=== PATIENT | male | born 1995 | race Two or more races ===

== ENCOUNTER 2017-12-24 16:17 | Emergency (ER) | payer OTHER ==
[~2017-12-24] VITALS: Ht 180.3 cm; Wt 123.4 kg
[2017-12-24 18:32] VITALS: BP 153/81
== END 2017-12-24 19:54 | disposition home or self-care (01) ==
LOC: ER 16:17
DX: S40.811A Abrasion of right upper arm, initial encounter (principal); M62.838 Other muscle spasm; V43.52XA Car driver injured in collision with other type car in traffic accident, initial encounter; Y93.89 Activity, other specified; Y92.89 Other specified places as the place of occurrence of the external cause; Y99.8 Other external cause status
CPT/HCPCS: 72040; 73030

== ENCOUNTER 2018-07-02 07:10 | Emergency (ER) | payer OTHER ==
[~2018-07-02] VITALS: Ht 180.3 cm; Wt 122.5 kg
[2018-07-02 07:53] LABS: Basophils # (auto) 0 uL; Basophils % (auto) 0.6 % (0.0-2.0); Eosinophils # (auto) 0.2 uL; Eosinophils % (auto) 2.6 % (0.0-7.0); Hematocrit 46.9 % (41.0-53.0); Lymphocytes # (auto) 2.3 uL; Mean Corpuscular Hemoglobin 30.6 pg (28.0-32.0); Mean Corpuscular Hgb Conc. 34.1 g/dL (32.0-36.0); Mean Corpuscular Volume 89.9 fL (80.0-100.0); Monocytes # (auto) 0.3 uL; Monocytes % (auto) 4.6 % (0.0-12.0); Neutrophils # (auto) 3.9 uL; Neutrophils % (auto) 58.2 % (37.0-80.0); Nucleated Red Blood Cells % 0.1 %; Platelet Count (auto) 243 10^3/uL (140-450); Red Blood Cells 5.22 10^6/uL (4.5-5.90); Red Cell Distribution Width 12.8 % (11.8-14.3); White Blood Cell 6.7 10^3/uL (4.4-10.8)
[2018-07-02 08:11] LABS: Alanine Aminotransferase 69 U/L (16-61); Anion Gap 8 (5-15); Aspartate Aminotransferase 36 U/L (15-37); BUN/Creatinine Ratio 18.3; Blood Urea Nitrogen 17 mg/dL (7-18); Calcium 8.3 mg/dL (8.5-10.1); Carbon Dioxide 26 mmol/L (21-32); Chloride 106 mmol/L (98-107); GFR African American 131 mL/min; GFR Non-African American 108 mL/min; Glucose 93 mg/dL (74-106); Potassium 4.1 mmol/L (3.5-5.1); Sodium 140 mmol/L (136-145)
[2018-07-02 08:16] LABS: Alkaline Phosphatase 102 U/L (45-117); Bilirubin, Total 0.5 mg/dL (0.2-1.0); Total Protein 7.4 g/dL (6.4-8.2)
[2018-07-02 08:44] VITALS: BP 124/87
== END 2018-07-02 12:20 | disposition home or self-care (01) ==
LOC: ER 07:10
DX: R07.89 Other chest pain (principal)
CPT/HCPCS: 36415; 71046; 80053; 84484; 85025; 93005

== ENCOUNTER 2018-12-16 12:20 | Inpatient (IN) | payer OTHER ==
[~2018-12-16] VITALS: Ht 180.3 cm; Wt 121.7 kg
[2018-12-16] MEDS ORDERED: SODIUM CHLORIDE 0.9% 1,000 ML IVB ONE (12:43)
[2018-12-16] MEDS ORDERED: ONDANSETRON HCL 4 MG/2 ML VIAL IV ONE ×2 (12:45→17:45)
[2018-12-16] MEDS ORDERED: MORPHINE SULFATE 4 MG/ML SYR/VIAL IV ONE (12:45)
[2018-12-16 13:30] LABS: Basophils # (auto) 0.1 uL; Basophils % (auto) 0.4 % (0.0-2.0); Eosinophils # (auto) 0 uL; Eosinophils % (auto) 0.1 % (0.0-7.0); Hematocrit 48.2 % (41.0-53.0); Hemoglobin 16.5 g/dL (13.5-17.5); Lymphocytes # (auto) 0.5 uL; Mean Corpuscular Hemoglobin 30.5 pg (28.0-32.0); Mean Corpuscular Hgb Conc. 34.3 g/dL (32.0-36.0); Monocytes # (auto) 0.7 uL; Monocytes % (auto) 4.9 % (0.0-12.0); Neutrophils # (auto) 12.3 uL; Neutrophils % (auto) 90.6 % (37.0-80.0); Platelet Count (auto) 215 10^3/uL (140-450); Red Blood Cells 5.42 10^6/uL (4.5-5.90); White Blood Cell 13.6 10^3/uL (4.4-10.8)
[2018-12-16 13:52] LABS: Calcium 8.5 mg/dL (8.5-10.1); Magnesium 2.2 mg/dL (1.6-2.6); Potassium 3.7 mmol/L (3.5-5.1)
[2018-12-16 13:56] LABS: BUN/Creatinine Ratio 9.8; Bilirubin, Total 1.9 mg/dL (0.2-1.0); Total Protein 8.1 g/dL (6.4-8.2)
[2018-12-16 13:57] LABS: Urine Bacteria NONE SEEN /hpf (None Seen); Urine Blood Negative /uL (Negative); Urine Specific Gravity 1.014 (1.001-1.035); Urine WBC 1 /hpf (0 - 3)
[2018-12-16] MEDS ORDERED: PIPERACILLIN-TAZOB 3.375GM 100 ML IV ONE (14:00)
[2018-12-16] MEDS ORDERED: ONDANSETRON HCL 4 MG/2 ML VIAL IV PRN (14:15)
[2018-12-16] MEDS: SOD CHL 0.9%/ KCL 20MEQ 1,000 ML IV SCH ×2 (14:19→22:34)
[2018-12-16 15:45] LABS: INR 1.12 (0.9-1.15); Prothrombin Time 11.9 sec (9.27-12.13)
[2018-12-16] MEDS ORDERED: cefTRIAXone 1GM/50ML D5W 50 ML IV ONE (15:52)
[2018-12-16] MEDS ORDERED: BUPIVACAINE 0.25% INJ 50ML VIAL ONE (15:55)
[2018-12-16] MEDS ORDERED: LIDOCAINE 1% HCL (LOCAL ANESTH.) INJ 20ML MDV ONE (15:55)
[2018-12-16] MEDS ORDERED: fentaNYL CITRATE 100 MCG/2 ML VL ONE (15:59)
[2018-12-16] MEDS ORDERED: ROCURONIUM 10MG/ML 10ML VIAL IV ONE (15:59)
[2018-12-16] MEDS ORDERED: MIDAZOLAM HCL 1MG/1ML-2 ML VIAL ONE (15:59)
[2018-12-16] MEDS ORDERED: SUCCINYLCHOLINE CHLORIDE 20 MG/ML 10ML VIAL IV ONE (16:01)
[2018-12-16] MEDS ORDERED: GLYCOPYRROLATE 0.2 MG/ML 1ML VIAL IV ONE (16:01)
[2018-12-16] MEDS ORDERED: NEOSTIGMINE 1 MG/ML INJ (10mg/10ML VIAL) IV ONE (16:01)
[2018-12-16] MEDS ORDERED: MORPHINE SULFATE 4 MG/ML SYR/VIAL IV PRN (17:45)
[2018-12-16] MEDS ORDERED: hydrALAZINE HCL 20 MG/ML VL IV PRN (17:45)
[2018-12-16] MEDS ORDERED: ePHEDrine SULFATE 50 MG/ML AMP IV PRN (17:45)
[2018-12-16 19:10] VITALS: BP 119/60
--- NOTE | 2018-12-16 19:10 | NUR ---
[place] admit from OR CAROLYNE MARTIN admitted to Med/surg unit, Luiz RN gave SBAR on patient. Patient oriented to Marion alexander RN, unit, room, bed, and unit policies regarding patient care and visiting hours. Patient is on room air, weighed by bedscale and encouraged to call if he needs something. All questions and concerns addressed, patient verbalized understanding.
[2018-12-16] MEDS: MORPHINE SULF INJ 2 MG/ML SYRINGE 1ML IV PRN (20:08)
[2018-12-16] MEDS: metroNIDAZOLE 500MG/100ML 100 ML IV SCH ×2 (20:10→23:55)
[2018-12-16 22:00] VITALS: BP 119/60
--- NOTE | 2018-12-16 23:00 | NUR ---
Patient had temperature Patient had temperature of 102.4, rechecked temperature and it was 101.9. Cold measures applied. Will continue to monitor patient.
--- NOTE | 2018-12-16 23:30 | NUR ---
Hospitalist paged No medication available to give patient for fever, hospitalist paged for orders. Will await call.
--- NOTE | 2018-12-17 00:30 | NUR ---
Hospitalist returned call Orders received, read back and confirmed.
[2018-12-17] MEDS: ACETAMINOPHEN 500 MG TAB PO PRN ×3 (01:25→15:53)
[2018-12-17] MEDS: MORPHINE SULF INJ 2 MG/ML SYRINGE 1ML IV PRN ×5 (02:37→21:55)
[2018-12-17 05:00] VITALS: BP 137/75
[2018-12-17 06:05] LABS: Basophils # (auto) 0 uL; Basophils % (auto) 0.1 % (0.0-2.0); Eosinophils # (auto) 0 uL; Hemoglobin 14.7 g/dL (13.5-17.5); Lymphocytes # (auto) 0.8 uL; Lymphocytes % (auto) 6.2 % (10.0-50.0); Mean Corpuscular Hemoglobin 30.7 pg (28.0-32.0); Mean Corpuscular Hgb Conc. 34.2 g/dL (32.0-36.0); Mean Corpuscular Volume 89.8 fL (80.0-100.0); Monocytes # (auto) 1.1 uL; Monocytes % (auto) 8.7 % (0.0-12.0); Neutrophils # (auto) 10.5 uL; Platelet Count (auto) 160 10^3/uL (140-450); Red Blood Cells 4.79 10^6/uL (4.5-5.90); White Blood Cell 12.3 10^3/uL (4.4-10.8)
[2018-12-17 06:09] LABS: Calcium 7.5 mg/dL (8.5-10.1); Potassium 3.9 mmol/L (3.5-5.1)
[2018-12-17] MEDS: metroNIDAZOLE 500MG/100ML 100 ML IV SCH ×3 (06:22→17:40)
--- NOTE | 2018-12-17 06:52 | NUR ---
Patient's temperature decreasing Patient had a temperature over night. Tylenol and cold measures applied. Patient tolerated well, last temperature taken was 99.8. Will continue to monitor.
--- NOTE | 2018-12-17 08:50 | NUR ---
Opening Shift Note Assumed care of patient, awake and alert. No S/S of distress/SOB. Patient complains of 6/10 abd pain and asking for pain medications. Instructed on POC and to call for assist PRN, will continue to monitor for changes Q1hr and PRN. NOTE: Educated patient on importance of ambulation. Goals established with patient. Patients mom at bedside participating in patient care.
[2018-12-17 08:53] VITALS: BP 142/84
--- NOTE | 2018-12-17 12:00 | NUR ---
AMBULATION Patient ambulated lap around nursing station with RN standby assist. Patient tolerated well.
[2018-12-17 12:42] VITALS: BP 130/79
[2018-12-17] MEDS: SOD CHL 0.9%/ KCL 20MEQ 1,000 ML IV SCH ×2 (14:15→22:09)
--- NOTE | 2018-12-17 16:20 | NUR ---
DR GONZALEZ ROUNDING Verbal order to keep patient npo. Tray taken. Pt educated.
[2018-12-17 17:00] VITALS: BP 163/81
--- NOTE | 2018-12-17 19:05 | NUR ---
Opening Shift Note Assumed care of patient, awake and alert. No S/S of distress or SOB. Instructed on POC and to call for assistance PRN, will continue to monitor for changes Q1hr and PRN.
[2018-12-17] MEDS: LEVOFLOXACIN 750MG 150 ML IV SCH (20:05)
[2018-12-17 22:00] VITALS: BP 143/79
--- NOTE | 2018-12-17 23:30 | NUR ---
WANDA drain emptied WANDA drain emptied 3 times with a total of 135 cc.
[2018-12-18] MEDS: metroNIDAZOLE 500MG/100ML 100 ML IV SCH ×5 (00:02→23:45)
--- NOTE | 2018-12-18 00:13 | NUR ---
WANDA drain emptied WANDA drain emptied, 75 cc emptied.
--- NOTE | 2018-12-18 01:10 | NUR ---
WANDA emptied WANDA drain emptied, 80 cc emptied.
[2018-12-18] MEDS: MORPHINE SULF INJ 2 MG/ML SYRINGE 1ML IV PRN ×6 (02:05→23:55)
--- NOTE | 2018-12-18 02:15 | NUR ---
WANDA drain emptied WANDA drain emptied, 100 cc emptied.
[2018-12-18] MEDS: ACETAMINOPHEN 500 MG TAB PO PRN (03:56)
[2018-12-18 05:00] VITALS: BP 150/75
--- NOTE | 2018-12-18 05:05 | NUR ---
WANDA drain emptied WANDA drain emptied, 100 cc emptied.
[2018-12-18 05:38] LABS: Basophils # (auto) 0 uL; Eosinophils # (auto) 0 uL; Hematocrit 44.9 % (41.0-53.0); Hemoglobin 15.1 g/dL (13.5-17.5); Lymphocytes # (auto) 0.7 uL; Lymphocytes % (auto) 4.2 % (10.0-50.0); Mean Corpuscular Hgb Conc. 33.7 g/dL (32.0-36.0); Mean Corpuscular Volume 88.8 fL (80.0-100.0); Monocytes # (auto) 1.3 uL; Monocytes % (auto) 7.5 % (0.0-12.0); Neutrophils # (auto) 14.8 uL; Neutrophils % (auto) 88.3 % (37.0-80.0); Nucleated Red Blood Cells % 0.1 %; Platelet Count (auto) 190 10^3/uL (140-450); Red Blood Cells 5.06 10^6/uL (4.5-5.90); Red Cell Distribution Width 12.9 % (11.8-14.3); White Blood Cell 16.8 10^3/uL (4.4-10.8)
--- NOTE | 2018-12-18 05:50 | NUR ---
WANDA drain emptied WANDA drain emptied, 50 cc emptied.
[2018-12-18] MEDS: SOD CHL 0.9%/ KCL 20MEQ 1,000 ML IV SCH ×2 (06:01→16:39)
--- NOTE | 2018-12-18 07:45 | NUR ---
Opening Shift Note Assumed care of patient, awake and alert. No S/S of distress/SOB or pain. Instructed on POC and to call for assist PRN, will continue to monitor for changes Q1hr and PRN. NOTE: 50 ML EMPTIED FROM WANDA DRAIN OF YELLOW LIQUID. PATIENT ASKING FOR FOOD, EDUCATED ON DIET ORDERS.
[2018-12-18 08:08] VITALS: BP 142/74
--- NOTE | 2018-12-18 08:40 | NUR ---
DR CARLOS Busch rounding on patient. Verbal orders read back and noted.
--- NOTE | 2018-12-18 11:20 | NUR ---
AMBULATION Patient ambulated lap around nursing station with standby assist. Patient tolerated well. Returned to bed. Call light in reach. Patients mother at bedside.
[2018-12-18 12:35] VITALS: BP 144/85
--- NOTE | 2018-12-18 16:00 | NUR ---
AMBULATION Patient ambulated around nursing station with RN standby assist.
--- NOTE | 2018-12-18 16:30 | NUR ---
TELEPHONE ORDERS RECEIVED AND NOTED. DR GONZALEZ AWARE OF PATIENTS WANDA DRAINAGE.
--- NOTE | 2018-12-18 16:34 | NUR ---
DR GONZALEZ PAGETeresa Patient's WANDA drain continues to fill with yellow liquid and emptied every hour. Patient also complaining of swelling to lower ext. Dr Narayan cintron.
[2018-12-18 16:43] VITALS: BP 167/88
[2018-12-18] MEDS: LEVOFLOXACIN 750MG 150 ML IV SCH (18:00)
[2018-12-18 22:00] VITALS: BP 141/96
[2018-12-19 04:18] VITALS: BP 147/93
[2018-12-19] MEDS: metroNIDAZOLE 500MG/100ML 100 ML IV SCH ×4 (06:02→20:36)
[2018-12-19 06:42] LABS: Basophils # (auto) 0 uL; Basophils % (auto) 0.1 % (0.0-2.0); Eosinophils # (auto) 0 uL; Eosinophils % (auto) 0.3 % (0.0-7.0); Hematocrit 46.6 % (41.0-53.0); Hemoglobin 15.7 g/dL (13.5-17.5); Lymphocytes # (auto) 1.5 uL; Lymphocytes % (auto) 10.2 % (10.0-50.0); Mean Corpuscular Hemoglobin 30.1 pg (28.0-32.0); Mean Corpuscular Hgb Conc. 33.7 g/dL (32.0-36.0); Mean Corpuscular Volume 89.3 fL (80.0-100.0); Monocytes # (auto) 1.2 uL; Monocytes % (auto) 8.6 % (0.0-12.0); Neutrophils # (auto) 11.6 uL; Neutrophils % (auto) 80.8 % (37.0-80.0); Platelet Count (auto) 262 10^3/uL (140-450); Red Blood Cells 5.22 10^6/uL (4.5-5.90); Red Cell Distribution Width 13.1 % (11.8-14.3); White Blood Cell 14.3 10^3/uL (4.4-10.8)
[2018-12-19 09:00] VITALS: BP 161/90
--- NOTE | 2018-12-19 10:30 | NUR ---
AMBULATION Patient ambulated around the unit, assisted by mother.
--- NOTE | 2018-12-19 10:30 | NUR ---
WANDA DRAIN EMPTIED WANDA DRAIN OUTPUT: 75 ML YELLOWISH FLUID.
[2018-12-19] MEDS: MORPHINE SULF INJ 2 MG/ML SYRINGE 1ML IV PRN (11:29)
--- NOTE | 2018-12-19 14:00 | NUR ---
WANDA DRAIN OUTPUT: 50 ML YELLOWISH FLUID.
[2018-12-19 14:42] VITALS: BP 144/77
[2018-12-19 16:33] VITALS: BP 140/74
[2018-12-19] MEDS: HYDROmorphone HCL 2 MG/ML VL IV PRN ×2 (16:51→20:41)
--- NOTE | 2018-12-19 17:00 | NUR ---
WANDA DRAIN OUTPUT: 90 ML YELLOWISH FLUID.
[2018-12-19] MEDS: LEVOFLOXACIN 750MG 150 ML IV SCH (18:37)
--- NOTE | 2018-12-19 18:50 | NUR ---
PATIENT REPORTED THAT HIS IV IS LEAKING, NOTED REDNESS AROUND THE SITE. WILL INFORM NIGHT RN.
--- NOTE | 2018-12-19 19:00 | NUR ---
CLOSING NOTE PATIENT RESTING IN BED, NOT IN DISTRESS. REPORT GIVEN TO NIGHT RN.
--- NOTE | 2018-12-19 19:15 | NUR ---
Opening Shift Note Assumed care of patient, awake and alert. No S/S of distress/SOB or pain. Instructed on POC and to call for assist PRN, will continue to monitor for changes Q1hr and PRN. Call ibanez with in reach, bed in lowest position.
[2018-12-19 22:00] VITALS: BP 135/69
--- NOTE | 2018-12-19 22:50 | NUR ---
WANDA DRAIN OUTPUT: 70 my yellow color Addendum: 12/19/18 at 2253 by XI TAYLOR RN WANDA DRAIN OUTPUT: 70 ml, YELLOW COLOR
[2018-12-20] MEDS: metroNIDAZOLE 500MG/100ML 100 ML IV SCH ×4 (01:05→18:07)
[2018-12-20] MEDS: HYDROmorphone HCL 2 MG/ML VL IV PRN ×4 (02:13→20:07)
--- NOTE | 2018-12-20 02:19 | NUR ---
WANDA DRAIN (abdomen): 50 ml yellow color
[2018-12-20 05:00] VITALS: BP 119/73
--- NOTE | 2018-12-20 08:00 | NUR ---
Opening Shift Note Assumed care of patient, awake and alert. No S/S of distress, with minimal pain. Encouraged patient to ambulate. Instructed on POC and to call for assist PRN, will continue to monitor for changes Q1hr and PRN.
[2018-12-20 09:00] VITALS: BP 125/95
--- NOTE | 2018-12-20 09:00 | NUR ---
Mother at bedside.
--- NOTE | 2018-12-20 09:43 | NUR ---
WANDA DRAIN OUTPUT: 90 ML YELLOWISH COLOR FLUID.
[2018-12-20 13:00] VITALS: BP_SYST 120; BP_SYST 133; BP_DIAS 82; BP_DIAS 83
--- NOTE | 2018-12-20 14:50 | NUR ---
Nutrition Assessment Notes please see attached link for complete assessment Est. Needs ABW 100k- kcal (23-25 kcal/kgBW), 100-110 gms pro (1.0-1.1gms/kgBW). Will continue to monitor pertinent labs and reassess nutrient need prn Addendum: 12/20/18 at [address] Amended: Links added.
[2018-12-20 17:00] VITALS: BP 135/94
[2018-12-20] MEDS: LEVOFLOXACIN 750MG 150 ML IV SCH (18:39)
--- NOTE | 2018-12-20 19:00 | NUR ---
Closing note Patient resting in bed, no signs of distress noted.
--- NOTE | 2018-12-20 19:30 | NUR ---
Opening Shift Note Assumed care of patient, awake and alert. No S/S of distress/SOB or pain. Instructed on POC and to call for assist PRN, will continue to monitor for changes Q1hr and PRN. IV fluids infusing, family at bedside.
[2018-12-20 22:00] VITALS: BP 119/60
[2018-12-21] MEDS: metroNIDAZOLE 500MG/100ML 100 ML IV SCH ×3 (00:10→12:58)
[2018-12-21] MEDS: HYDROmorphone HCL 2 MG/ML VL IV PRN ×2 (02:49→13:07)
[2018-12-21 05:30] VITALS: BP 120/70
--- NOTE | 2018-12-21 05:38 | NUR ---
WANDA DRAIN OUT PUT: 55ML/12HRS
--- NOTE | 2018-12-21 07:30 | NUR ---
OPENING SHIFT NOTE: Received report from NOC RN, Roz. Assumed care of patient. Patient sitting up in bed, eating breakfast and denies pain. Bed in lowest position, rails x2 up and call light within reach. Updated on plan of care. Will continue to monitor.
[2018-12-21 09:00] VITALS: BP 120/66
[2018-12-21 12:50] VITALS: BP 126/84
--- NOTE | 2018-12-21 13:50 | NUR ---
MD: Dr Busch at bedside to see patient. WANDA drain removed. Patient instructed to follow up with surgeon in 1-2 weeks, no heavy lifting and to return to work in 1 week.
--- NOTE | 2018-12-21 14:18 | NUR ---
MD: Dr Mario at bedside to see patient. MD aware of Dr Busch's recommendations and clearance for discharge. Plan to discharge patient home later today.
[2018-12-21 16:48] VITALS: BP 134/98
--- NOTE | 2018-12-21 17:30 | NUR ---
DISCHARGE: Discharge instructions given as ordered. Encourage to follow up with PMD and Dr Roman Busch as instructed. All questions and concerns addressed. Patient verbalized understanding. Medication reconciliation form completed and copy given to patient. Home medications held in Pharmacy returned to patient, and needed vaccines given. IV removed with catheter intact, pressure dressing applied. Patient taken to vehicle via wheelchair with all personal belongings, accompanied by staff and family member. No distress noted at time of departure.
== END 2018-12-21 17:30 | disposition home or self-care (01) | DRG 336 ==
LOC: ER 12:20 → TELE-WESTW 14:08 → WEST WING 19:41
PROVIDERS: ADMIT Nurse Practitioner Acute Care; ATTEND Internal Medicine Pulmonary Disease
PROC: 0DNJ4ZZ Release Appendix, Percutaneous Endoscopic Approach (ICD-10-PCS; 2018-12-16)
PROC: 0W9G4ZZ Drainage of Peritoneal Cavity, Percutaneous Endoscopic Approach (ICD-10-PCS; 2018-12-16)
PROC: 0DTJ4ZZ Resection of Appendix, Percutaneous Endoscopic Approach (ICD-10-PCS; principal; 2018-12-16 16:01)
DX: K35.33 Acute appendicitis with perforation, localized peritonitis, and gangrene, with abscess (principal); R65.10 Systemic inflammatory response syndrome (SIRS) of non-infectious origin without acute organ dysfunction; E66.9 Obesity, unspecified; K66.0 Peritoneal adhesions (postprocedural) (postinfection); R73.9 Hyperglycemia, unspecified; Z68.37 Body mass index [BMI] 37.0-37.9, adult
CPT/HCPCS: 36415; 74176; 80048; 80053; 81001; 82150; 83690; 83735; 85025; 85610; 85730; 94761; 96365; 96375; A6257; G0378; J0330; J0696; J1956; J2001; J2250; J2405; J2543; J3490